=== PATIENT | female | born 1980 | race Caucasian/White ===

== ENCOUNTER 2019-08-06 10:18 | Outpatient (CLI) | payer OTHER, SELFPAY ==
--- NOTE | ~2019-08-06 | MM_ITS ---
EXAMINATION: MM screening tyree BI w jamie HISTORY: Screening mammogram, family history of breast cancer in her mother. TECHNIQUE: Craniocaudal and mediolateral oblique 3-D tomosynthesis images were obtained and synthetic 2-D images were generated. CAD analysis was submitted and interpreted. COMPARISON: None, baseline BREAST PARENCHYMAL COMPOSITION: The breasts are heterogeneously dense, which may obscure small masses . FINDINGS: There is no evidence of suspicious mass, calcification, or architectural distortion to sugg est malignancy in either breast. IMPRESSION: 1. No mammographic evidence of malignancy. 2. Recommend routine screening mammography in one year. BI-RADS Category 1: Negative Reviewed, dictated and finalized at location A. ER HEAD
== END 2019-08-06 10:19 | disposition home or self-care (01) ==
LOC: ANHIMG 10:22
PROVIDERS: PCP Family Medicine; Visit Provider Obstetrics & Gynecology
DX: Z12.31 Encounter for screening mammogram for malignant neoplasm of breast (principal)
CPT/HCPCS: 77063; 77067

== ENCOUNTER 2019-10-14 09:52 | Outpatient (CLI) | payer OTHER, SELFPAY ==
--- NOTE | ~2019-10-14 | XR_ITS ---
XR lumbar spine 2-3V 10/14/2019 10:12 Indication: Low back pain Procedure: 3 views of the lumbar spine Comparison: No prior studies for comparison. Findings: Normal lumbar alignment. Vertebral body heights are maintained. No significant disc narrowi ng. There is mild superior endplate degenerative change at L4. No evidence for spondylolisthesis. Ped icles intact. Sacral foramen are symmetric. Impression: 1: Mild lumbar spondylosis. Reviewed, dictated and finalized at location A. Impression: 1: Mild lumbar spondylosis.
== END 2019-10-14 09:53 | disposition home or self-care (01) ==
LOC: ANHIMG 09:55
PROVIDERS: PCP Family Medicine; Visit Provider Physician Assistant
DX: M54.5 Low back pain (principal); G89.29 Other chronic pain; M47.816 Spondylosis without myelopathy or radiculopathy, lumbar region
CPT/HCPCS: 72100

== ENCOUNTER 2019-11-24 00:15 | Outpatient (CLI) | payer OTHER, SELFPAY ==
[2019-11-24 18:58] LABS: SARS-CoV-2 RNA PCR Negative
== END 2019-11-24 00:16 | disposition home or self-care (01) ==
LOC: ANHCOVIDDT 00:15
PROVIDERS: PCP Family Medicine; Visit Provider Internal Medicine Gastroenterology
DX: Z01.812 Encounter for preprocedural laboratory examination (principal); Z20.828 Contact with and (suspected) exposure to other viral communicable diseases
CPT/HCPCS: 87635; C9803; U0003

== ENCOUNTER 2019-11-26 00:55 | Day surgery (SDC) | payer OTHER, SELFPAY ==
[2019-11-20 14:48] VITALS: BMI 27.5
[2019-11-26 09:16] VITALS: BP 129/79; PULSE 90; RESP 18; TEMP 37; O2SAT 99; BMI 26.6
--- NOTE | 2019-11-26 09:30 | PM.HPGS ---
History of Present Illness History of Present Illness Consent: Risks, benefits, and alternatives have been discussed and questions answered. Patient agrees to proceed with procedure. Chief complaint: neoplasm screening, fm hx colon ca Narrative: Dayami Reed is a 39 year old W female referred for screening colonoscopy secondary to family history of colon cancer father diagnosis at 60. Patient did have a colonoscopy over 10 years ago for what turned out to be infectious colitis. Patient is presently asymptomatic. [facility] Past Medical History Medical History Depression AMAN (generalized anxiety disorder) Surgical History Surgical History (Updated 11/26/19 @ 09:32 by Michael Nicholas MD) History of sinus surgery Status post section Family History Family History Mother Diabetes mellitus Father Carcinoma of colon Social History Social History Smoking status: Former smoker Smoking end date: 06/17/12 Alcohol intake: current Gender identity (if verbalized by the patient): Female Meds Home Medications and Allergies Home Medications Medication Instructions Recorded Confirmed Type No Home Medications 11/20/19 11/26/19 History Allergies Allergy/AdvReac Type Severity Reaction Status Date / Time No Known Allergies Allergy Verified 11/26/19 09:12 Vital Signs Vital Signs - 24 hr 11/26/19 09:16 Temperature 37.0 C Pulse Rate 90 Respiratory Rate 18 Blood Pressure 129/79 Pulse Oximetry 99 Exam Const: Orientation/consciousness: patient oriented x3 Resp: Auscultation: clear to auscultation bilaterally Cardio: Rate: regular rate Rhythm: regular rhythm Heart sounds: no murmurs GI: GI Palp: Yes Soft to palpation, No Tenderness to palpation present (GI), Yes No hepatosplenomegaly present and No Palpable mass present Auscultation: normal bowel sounds Neuro: General: patient oriented x3 and no focal motor deficits Extrem: General: no pedal edema Assessment and Plan Additional Plan screening colonoscopy in high risk patient
[2019-11-26] MEDS: LACTATED RINGERS 1,000 ML 150 ML IV CONT (09:33)
--- NOTE | 2019-11-26 09:41 | WPDANESEPPF ---
Anes - Initial Pre Proc Eval Procedure: Operation Date: 11/26/19 10:30 Proposed Procedures p Screening Colonoscopy - Michael Nicholas MD Date/Time: 11/26/19 09:41 Surgeon: Michael Nicholas MD Pre Op Diagnosis: neoplasm screening, fm hx colon ca Patient Data Age: 39 Gender: F Height: 5 ft 6 in Weight: 74.8 kg Last Vital Signs Temp 98.6 F 11/26/19 09:16 Pulse 90 11/26/19 09:16 Resp 18 11/26/19 09:16 BP 129/79 11/26/19 09:16 Pulse Ox 99 11/26/19 09:16 Allergies Allergy/AdvReac Type Severity Reaction Status Date / Time No Known Allergies Allergy Verified 11/26/19 09:33 Home Medications Medication Instructions Recorded Confirmed Type No Home Medications 11/20/19 11/26/19 History Patient hx anesthesia problems: none Family hx anesthesia problems: none PMFSH Past Medical History Medical History Depression AMAN (generalized anxiety disorder) Surgical History Surgical History (Updated 11/26/19 @ 09:32 by Michael Nicholas MD) History of sinus surgery Status post section Family History Family History Mother Diabetes mellitus Father Carcinoma of colon Social History Social History Smoking status: Former smoker Smoking end date: 06/17/12 Alcohol intake: current Gender identity (if verbalized by the patient): Female Anes - Eval Final PreProcedure Day of Procedure 11/26/19 09:41 Patient weight: normal Heart: regular rate and rhythm Lungs: clear to auscultation Airway: Mallampati scale class II Neurological: alert and oriented Last oral intake: >/= 8 hours ASA classification: II Emergent: no Anesthetic plan: proceed Anesthesia type and monitoring: general GIVS and standard monitoring Informed Consent: The patient's anesthetic plan and its attendant risks and benefits were discussed with the patient/family/POA. Questions were solicited and answers provided to the satisfaction of the patient/family/POA.
[2019-11-26 10:27] VITALS: BP 99/67; PULSE 94; RESP 16; O2SAT 96
[2019-11-26 10:37] VITALS: BP 104/71; PULSE 87; RESP 18; O2SAT 99
[2019-11-26 10:47] VITALS: BP 108/74; PULSE 82; RESP 21; O2SAT 100
== END 2019-11-26 10:55 | disposition home or self-care (01) ==
PROVIDERS: PCP Family Medicine; Visit Provider Internal Medicine Gastroenterology
PROC: 0DJD8ZZ Inspection of Lower Intestinal Tract, Via Natural or Artificial Opening Endoscopic (ICD-10-PCS; CPT 45378; principal; 2019-11-26 10:30)
DX: Z12.11 Encounter for screening for malignant neoplasm of colon (principal); Z80.0 Family history of malignant neoplasm of digestive organs; Z87.891 Personal history of nicotine dependence
CPT/HCPCS: G0105; J2704; J7120

== ENCOUNTER 2020-08-09 08:04 | Outpatient (CLI) | payer BC, SELFPAY ==
--- NOTE | ~2020-08-09 | MM_ITS ---
EXAMINATION: MM screening tyree BI w jamie HISTORY: Screening mammogram, family history of breast cancer in her mother. TECHNIQUE: Craniocaudal and mediolateral oblique 3-D tomosynthesis images were obtained and synthetic 2-D images were generated. CAD analysis was submitted and interpreted. COMPARISON: 08/06/2019 BREAST PARENCHYMAL COMPOSITION: The breasts are heterogeneously dense, which may obscure small masses . FINDINGS: There is no evidence of suspicious mass, calcification, or architectural distortion to sugg est malignancy in either breast. There has been no suspicious interval change. IMPRESSION: 1. No mammographic evidence of malignancy. 2. Recommend routine screening mammography in one year. BI-RADS Category 1: Negative Reviewed, dictated and finalized at location A. FOOD SERVICES MANAGER
== END 2020-08-09 08:05 | disposition home or self-care (01) ==
PROVIDERS: PCP Family Medicine; Visit Provider Obstetrics & Gynecology Gynecology
DX: Z12.31 Encounter for screening mammogram for malignant neoplasm of breast (principal)
CPT/HCPCS: 77063; 77067

== ENCOUNTER 2021-08-25 09:36 | Emergency (ER) | payer BC, SELFPAY ==
[2021-08-25 09:45] VITALS: BP 142/105; PULSE 72; RESP 19; TEMP 36.6; O2SAT 100
[2021-08-25] MEDS: diphenhydrAMINE HCl INJ 50 MG/ML VIAL 25 MG IV PUSH (11:51)
[2021-08-25] MEDS: KETOROLAC 30 MG/ML VIAL (*BKC) IV PUSH (11:51)
[2021-08-25] MEDS: SODIUM CHLORIDE 0.9% IV 1,000 ML 999 ML IV CONT (11:51)
[2021-08-25] MEDS: METOCLOPRAMIDE HCL INJ 10 MG/2 ML VIAL IV PUSH (11:52)
[2021-08-25 13:30] VITALS: BP 125/82; PULSE 85; RESP 14; O2SAT 97
--- NOTE | 2021-08-25 13:38 | ED.HA ---
HPI - Headache General Chief Complaint: Headache Stated Complaint: migraine, vomiting Time Seen by Provider: 08/25/21 11:24 History of Present Illness HPI Narrative: Patient is a 41-year-old female who presents ER with headache. Waxing waning over the last week. Has been taking Excedrin Migraine and Aleve. Worsened this morning. Associate with photophobia. Mild nausea. No fevers or chills or sweats. No extremity numbness or tingling. No new rash. No stiffness of the neck. Has history of migraines but this is more severe than typical. No thunderclap. 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 No other triggers. Related Data Home Medications Medication Instructions Recorded Confirmed No Home Medications 11/20/19 11/26/19 Allergies Allergy/AdvReac Type Severity Reaction Status Date / Time No Known Allergies Allergy Verified 08/25/21 10:53 Review of Systems Review of Systems: All systems reviewed & are unremarkable except as noted in HPI and below Constitutional: Constitutional: Denies chills, Denies fever(s) and Denies weakness Eyes: Eyes: Denies change in vision and Reports photophobia ENT: Denies nasal congestion and Denies sore throat Gastrointestinal: Gastrointestinal: Reports nausea and Denies vomiting Neurologic: Denies vertigo, Reports headache(s), Denies focal weakness and Denies numbness PMFSH Past Medical History Medical History (Updated 08/25/21 @ 13:42 by Lenin Salazar MD) Depression AMAN (generalized anxiety disorder) Migraine headache Surgical History Surgical History History of sinus surgery Status post section Family History Family History Mother Diabetes mellitus Father Carcinoma of colon Social History Social History (Updated 06/24/20 @ 11:27 by Tyesha Dukes CMA) Smoking status: Former smoker Second hand tobacco smoke exposure: No Smoking end date: 06/17/12 Alcohol intake: current Substance use: never Substance use type: does not use Gender identity (if verbalized by the patient): Female Exam Narrative: GENERAL: Uncomfortable-appearing, well-nourished, and in no acute distress, sensitive to light. HEAD: Normocephalic, atraumatic. EYES: PERRLA and EOMI. ENT: Mucous membranes moist. NECK: Supple. Full range of motion without meningismus. CHEST: Clear to auscultation. No respiratory distress. HEART: Regular rate and rhythm. Normal peripheral pulses. EXTREMITIES: Normal range of motion. No edema. NEURO: Alert and oriented x3. PSYCH: Normal mood and affect. Course Course Emergency Course: Headache markedly improved with Reglan/Benadryl/Toradol. Discharge home. Vital Signs Vital signs: Vital Signs Temperature 97.9 F 08/25/21 09:45 Pulse Rate 72 08/25/21 09:45 Respiratory Rate 19 08/25/21 09:45 Blood Pressure 142/105 H 08/25/21 09:45 Pulse Oximetry 100 08/25/21 09:45 Temperature 97.9 F 08/25/21 09:45 Pulse Rate 72 08/25/21 09:45 Respiratory Rate 19 08/25/21 09:45 Blood Pressure 142/105 H 08/25/21 09:45 Pulse Oximetry 100 08/25/21 09:45 Discharge Plan Discharge Clinical Impression: Migraine Patient Disposition: Home, Self-Care Condition: Stable Instructions: Migraine Headache (ED) Additional Instructions: Return the ER if you have worsening headache, you cannot keep down food or water, you have chest pain or shortness of breath, you have fever over 100.4 ?F. Prescriptions: No Action No Home Medications RF: 0 Follow-up/Referrals: Mike Conner MD [Primary Care Provider] - 1 Week
== END 2021-08-25 13:30 | disposition home or self-care (01) ==
PROVIDERS: Emergency Provider Emergency Medicine; PCP Family Medicine
DX: G43.909 Migraine, unspecified, not intractable, without status migrainosus (principal); Z87.891 Personal history of nicotine dependence
CPT/HCPCS: 96361; 96374; 96375; 99284; J1200; J1885; J2765; J7030

== ENCOUNTER 2021-09-21 15:43 | Outpatient (CLI) | payer BC, SELFPAY ==
--- NOTE | ~2021-09-21 | MM_ITS ---
EXAMINATION: MM screening tyree BI w jamie HISTORY: Screening TECHNIQUE: Craniocaudal and mediolateral oblique 3-D tomosynthesis images were obtained and synthetic 2-D images were generated. CAD analysis was submitted and interpreted. COMPARISON: Comparison to multiple prior studies sequentially, with oldest reviewed study dated 08/06. BREAST PARENCHYMAL COMPOSITION: The breasts are heterogeneously dense, which may obscure small masses . FINDINGS: There is no evidence of suspicious mass, calcification, or architectural distortion to sugg est malignancy in either breast. There has been no suspicious interval change. IMPRESSION: 1. No mammographic evidence of malignancy. 2. Recommend routine screening mammography in one year. BI-RADS Category 1: Negative Reviewed, dictated and finalized at location A.
== END 2021-09-21 15:44 | disposition home or self-care (01) ==
LOC: ANHIMG 15:46
PROVIDERS: PCP Family Medicine; Visit Provider Obstetrics & Gynecology Gynecology
DX: Z12.31 Encounter for screening mammogram for malignant neoplasm of breast (principal)
CPT/HCPCS: 77063; 77067

== ENCOUNTER 2021-12-13 13:21 | Outpatient (CLI) | payer BC, SELFPAY ==
--- NOTE | ~2021-12-13 | MR_ITS ---
EXAMINATION: MR brain/brain stem wo con DATE: 12/13/2021 15:40 CDT INDICATION: Migraine headaches. TECHNIQUE: Magnetic resonance imaging (MRI) of the brain and brainstem was performed without intraven ous contrast. Sequences included sagittal and axial T1-weighted SE, axial diffusion-weighted FS SE, a xial T2*-weighted GRE, axial T2-weighted FLAIR Propeller, and axial T2-weighted Propeller. Apparent d iffusion coefficient (ADC) maps were created. COMPARISON: CT sinuses dated 12/06/2018 FINDINGS: The brain volume and ventricular system are within normal limits. The brain parenchymal si gnal intensity pattern and rebolledo/white matter is normal and there is no evidence of hemorrhage, space occupying masses or infarctions. The flow signal voids of the major arterial structures about the [place] and within the ericka r dural venous sinuses appear grossly unremarkable and patent. The seventh and eighth cranial nerve complexes are normal. The mid sagittal image demonstrates a normal craniovertebral junction and ade us callosum. There is a mucous retention cyst of the left maxillary sinus. IMPRESSION: 1: Unremarkable MRI of the brain. No acute intracranial abnormality. Reviewed, dictated and finalized at location A.
== END 2021-12-13 13:22 | disposition home or self-care (01) ==
PROVIDERS: PCP Family Medicine; Visit Provider Physician Assistant Medical
DX: G43.909 Migraine, unspecified, not intractable, without status migrainosus (principal)
CPT/HCPCS: 70551

== ENCOUNTER → 2022-03-16 00:14 | Outpatient (CLI) | payer BC, SELFPAY ==
[2022-03-16 11:44] LABS: SARS-CoV-2 RNA PCR Negative
== END ==
PROVIDERS: PCP Family Medicine; Visit Provider Family Medicine
DX: J06.9 Acute upper respiratory infection, unspecified (principal); Z20.822 Contact with and (suspected) exposure to COVID-19
CPT/HCPCS: C9803; U0003; U0005

== ENCOUNTER 2022-11-19 09:18 | Outpatient (CLI) | payer BC, SELFPAY ==
--- NOTE | ~2022-11-19 | MM_ITS ---
EXAMINATION: MM screening tyree BI w jamie HISTORY: Screening TECHNIQUE: Craniocaudal and mediolateral oblique 3-D tomosynthesis images were obtained and synthetic 2-D images were generated. CAD analysis was submitted and interpreted. COMPARISON: Comparison to multiple prior studies sequentially, with oldest reviewed study dated 08/06. BREAST PARENCHYMAL COMPOSITION: The breasts are heterogeneously dense, which may obscure small masses FINDINGS: There is a new focal asymmetry laterally in the right breast on CC view. The left breast is stable without evidence for malignancy. IMPRESSION: 1. New right breast asymmetry laterally on CC view. 2. Additional mammographic views and possible breast ultrasound are recommended. BI-RADS Category 0: Incomplete: Needs additional imaging evaluation. Reviewed, dictated and finalized at location A. IMPRESSION: 1. New right breast asymmetry laterally on CC view. 2. Additional mammographic views and possible breast ultrasound are recommended . BI-RADS Category 0: Incomplete: Needs additional imaging evaluation.
== END 2022-11-19 09:19 | disposition home or self-care (01) ==
LOC: ANHIMG 09:21
PROVIDERS: PCP Family Medicine; Visit Provider Obstetrics & Gynecology Gynecology
DX: Z12.31 Encounter for screening mammogram for malignant neoplasm of breast (principal); R92.8 Other abnormal and inconclusive findings on diagnostic imaging of breast
CPT/HCPCS: 77063; 77067

== ENCOUNTER 2022-12-17 11:40 | Outpatient (CLI) | payer BC, SELFPAY ==
--- NOTE | ~2022-12-17 | MM_ITS ---
EXAMINATION: MM diagnostic tyree RT w jamie HISTORY: Right breast asymmetry on screening mammogram TECHNIQUE: Additional 3-D tomosynthesis images of the right breast were performed and synthetic 2-D i mages were generated. CAD analysis was submitted and interpreted. COMPARISON: 11/19/2022, 09/21/2021,08/09/2020, 08/06/2019 FINDINGS: There is a return to baseline fibroglandular appearance with spot compression of the right breast in the area questioned on screening mammogram. No suspicious mass, calcification, or cloud infrastructure architect ural distortion are identified to suggest malignancy. IMPRESSION: 1. No mammographic evidence of malignancy. 2. Recommend routine screening mammography in one year. BI-RADS Category 1: Negative Reviewed, dictated and finalized at location A.
== END 2022-12-17 11:41 | disposition home or self-care (01) ==
LOC: ANHIMG 11:42
PROVIDERS: PCP Family Medicine; Visit Provider Obstetrics & Gynecology Gynecology
DX: R92.8 Other abnormal and inconclusive findings on diagnostic imaging of breast (principal)
CPT/HCPCS: 77061; 77065; G0279

== ENCOUNTER 2023-12-02 08:03 | Outpatient (CLI) | payer BC, SELFPAY ==
--- NOTE | ~2023-12-02 | MM_ITS ---
EXAMINATION: MM screening tyree BI w jamie HISTORY: Screening TECHNIQUE: Craniocaudal and mediolateral oblique 3-D tomosynthesis images were obtained and synthetic 2-D images were generated. CAD analysis was submitted and interpreted. COMPARISON: Comparison to multiple prior studies sequentially, with oldest reviewed study dated 08/06. BREAST PARENCHYMAL COMPOSITION: Dense: The breasts are heterogeneously dense, which may obscure small masses FINDINGS: There is no evidence of suspicious mass, calcification, or architectural distortion to sugg est malignancy in either breast. There has been no suspicious interval change. IMPRESSION: 1. No mammographic evidence of malignancy. 2. Recommend routine screening mammography in one year. BI-RADS Category 1: Negative Reviewed, dictated and finalized at location B.
== END 2023-12-02 08:04 | disposition home or self-care (01) ==
LOC: ANHIMG 08:05
PROVIDERS: PCP Family Medicine; Visit Provider Nurse Practitioner
DX: Z12.31 Encounter for screening mammogram for malignant neoplasm of breast (principal)
CPT/HCPCS: 77063; 77067

== ENCOUNTER 2024-09-07 10:55 | Outpatient (CLI) | payer BC, SELFPAY ==
--- NOTE | ~2024-09-07 | US_ITS ---
EXAMINATION: US pelvic complete DATE: 09/07/2024 11:10 INDICATION: Left lower quadrant abdominal pain. TECHNIQUE: Multiple transabdominal sonographic images of the pelvis were obtained. COMPARISON: CT pelvis 02/14/2017 FINDINGS: The uterus measures 5.9 x 2.6 x 3.6 cm. There is no free fluid in the pelvis. The endometrial complex measures 3 mm in thickness. The right ovary measures 2.0 x 1.0 x 2.0 cm. The left ovary measures 1.6 x 1.2 x 1.9 cm. There is normal vascular flow in the ovaries. IMPRESSION: 1. Normal pelvis. Reviewed, dictated and finalized at location A. IMPRESSION: 1. Normal pelvis.
== END 2024-09-07 10:56 | disposition home or self-care (01) ==
LOC: MICIMG 10:56
PROVIDERS: PCP Family Medicine; Visit Provider Nurse Practitioner Women's Health
DX: R10.32 Left lower quadrant pain (principal)
CPT/HCPCS: 76856

== ENCOUNTER 2024-11-05 12:42 | Outpatient (CLI) | payer BC, SELFPAY ==
--- OUTSIDE RECORDS SUMMARY | 2024-11-05 12:47 | XMS_ITS | Referral Summary ---
Author Organization [facility] Address [address] [place] [address] Care Team Providers Care Welding Machine Assembler Name Role Phone Alee Dickerson MD Primary Care Provider [phone] Allergies No known active allergies Medications Qulipta 60 mg tablet Take 1 tablet by mouth daily 3 Active estradiol-noreth indrone (ACTIVELLA) 0.5-0.1 mg per tablet Take 1 tablet by mouth daily 4 Active fluticasone propionate (FLONASE) 50 mcg/actuation nasal sprayIndications :Acute maxillary sinusitis, recurrence not specified,Right acute serous otitis media, recurrence not specified Administer 2 sprays into each nostril daily 1 each 4 Active benzonatate (TESSALON) 100 mg capsuleIndicatio ns:Cough Take 1 capsule (100 mg total) by mouth 3 (three) times a day as needed for cough 42 capsule 4 Active albuterol HFA (PROVENTIL HFA,VENTOLIN HFA,PROAIR HFA) 90 mcg/actuation inhalerIndicatio ns:Lower respiratory infection Inhale 2 puffs every 6 (six) hours as needed for wheezing or shortness of breath 18 g 4 Active SUMAtriptan (IMITREX) 100 mg tablet 4 Active Active Problems No known active problems Social History Tobacco Use Types Packs/Day Years Used Date Smoking Tobacco: Former Tobacco Cessation:Counseling Given: Not Answered AUDIT-C Answer Date Recorded Q1: How often do you have a drink containing alc ohol? Monthly or less 12/14/2021 Q2: How many drinks containi ng alcohol do you have on a typical day when you are drinking? 1 or 2 12/14/2021 Q3: How often do you have si x or more drinks on one occasion? Less than monthly 12/14/2021 Personal Safety Answer Date Recorded Getting School Help Needed Not on file 07/04 Comments Unknown Sex and Gender Information Value Date Recorded Sex Assigned at Not on file Legal Sex Female 2:15 PM CDT Gender Identity Female 12/15/2021 1:22 PM CDT Sexual Orientation Not on file Last Filed Vital Signs Vital Sign Reading Time Taken Comments Blood Pressure 138/90 04/10/2024 5:52 PM CDT Pulse 103 04/10/2024 5:52 PM CDT Temperature 37.4 C (99.4 F) 04/10/2024 5:30 PM CDT Respiratory Rate 20 04/10/2024 5:30 PM CDT Oxygen Saturation 99% 04/10/2024 5:30 PM CDT Inhaled Oxygen Concentration - - Weight 72.6 kg (160 lb) 04/10/2024 5:30 PM CDT Height 167.6 cm (5' 6 ) 04/10/2024 5:30 PM CDT Body Mass Index 25.82 04/10/2024 5:30 PM CDT Plan of Treatment Not on file Insurance [employer] OOS ANTH ACCESS Member Subscriber Plan / Payer (Ef fective 2020-Present) Name:Alona Dayami Relation to Subscriber:Spouse Name:PREMNARINDER Almeida Date of :1979 (Home) Address: [place] [address] Payer ID:[id number] (NAIC) Type:BC ALLIANCE Address: [facility] [id number] [place] [id number] Care Teams Welding Machine Assembler Relationship Specialty Start Date End Date Alee Dickerson MD PCP - General Family Medicine 04/20/22
--- OUTSIDE RECORDS SUMMARY | 2024-11-05 12:47 | XMS_ITS | Clinical Summary ---
Author Organization [facility] Address [address] [place] [address] Care Team Providers Care Pier Hand Name Role Phone Mike Conner MD Primary Care Provider [phone] [facility],non-owned Affiliates and Associated Physician Practices is amultiple site organization consisting of ambulatory clinics and hospital sitesin [place], [place], [place] and [place]. This disclosure is being madepursuant to the Care Everywhere program and may not contain all information available regarding this patient. Last updated 18.[facility] Allergies No known active allergies Medications * Be aware that medications may not be up to date on this document. Alwaysverify current medications with the patient. fluticasone propionate (FLONASE) 50 MCG/ACT nasal spray Rugby 2 sprays into each nostril once daily 16 g 08/23/2019 Active sertraline (ZOLOFT) 50 MG tablet Take 1 tablet by mouth every 24 hours 08/14/2018 Active busPIRone (BUSPAR) 5 MG tablet Take 1 tablet by mouth every 12 hours 08/14/2018 Active ibuprofen (MOTRIN) 600 MG tablet Take 1 tablet by mouth every 8 hours 08/14/2018 Active azithromycin (ZITHROMAX) 250 MG tablet Take 2 tabs today, then 1 tab daily for next 4 days 6 tablet 01/25/2021 Active Active Problems No known active problems Social History Tobacco Use Types Packs/Day Years Used Date Smoking Tobacco: Former Cigarettes Smokeless Tobacco: Never Comments:stopped 2014 Comments No Sex and Gender Information Value Date Recorded Sex Assigned at Not on file Legal Sex Female 2:41 PM CDT Gender Identity Not on file Sexual Orientation Not on file Last Filed Vital Signs Vital Sign Reading Time Taken Comments Blood Pressure 116/76 01/25/2021 2:05 PM CDT Pulse 85 01/25/2021 2:05 PM CDT Temperature 36.9 C (98.4 F) 01/25/2021 2:05 PM CDT Respiratory Rate 16 12/06/2020 12:08 PM CDT Oxygen Saturation 97% 01/25/2021 2:05 PM CDT Inhaled Oxygen Concentration - - Weight 72.6 kg (160 lb) 01/25/2021 2:05 PM CDT Height 167.6 cm (5' 6 ) 01/25/2021 2:05 PM CDT Body Mass Index 25.82 01/25/2021 2:05 PM CDT Plan of Treatment Health Maintenance Due Date Last Done Comments COLOGUARD (AGES 45-75) - COL ON CA SCREENING 1979 COLON MONITORING 1979 COLONOSCOPY - COLON CA SCREENING 1979 CT COLONOGRAPHY - COLON CA SCREENING 1979 Colorectal Cancer Screening 1979 FIT - COLON CA SCREENING 1979 FLEX SIG - COLON CA SCREENING 1979 LIPID TESTING 1979 MAMMOGRAM 1979 HIV SCREENING 1994 HEPATITIS C SCREENING 07/27/1997 DTAP/TDAP/TD VACCINES (1 - Tdap) 1998 HEPATITIS B VACCINE (1 of 3 - 19+ 3-dose series) 1998 SCREENING FOR DIABETES 12/06/2020 COVID-19 VACCINE (3 - 2023-2 5 season) 2024 09/06/2020, 08/06/2020 DEPRESSION SCREENING 06/17/2024 INFLUENZA VACCINE (Season Ended) 2025 04/05/2020, 04/06/2018 ZOSTER VACCINE (1 of 2) 2029 HIB VACCINE Aged Out No longer eligi ble based on patient's age to complete this topic HPV VACCINE Aged Out No longer eligi ble based on patient's age to complete this topic MENINGOCOCCAL (Group B) VACCINE SHARED DECISION-MAKING Aged Out No longer eligible based on patient's age to complete this topic MENINGOCOCCAL GROUPS A/C/Y/W VACCINE Aged Out No longer eligible b ased on patient's age to complete this topic PNEUMOCOCCAL VACCINE Aged Out No long er eligible based on patient's age to complete this topic Insurance [employer] Care Teams Pier Hand Relationship Specialty Start Date End Date Mike Conner MD [address] [place] [address] PCP - General Family Medicine 04/26/18
--- OUTSIDE RECORDS SUMMARY | 2024-11-05 12:47 | XMS_ITS | Continuity of Care Document ---
Author Organization [facility] Address [address] [place] [address] Phone Care Team Providers Care Recovery Room Nurse Name Role Phone Unavailable Unavailable Unavailable Advance Directives Directive Yes / No Effective Date File Name No Information Encounters Encounter Description Practice Location Reason(s) For Visit Diagnoses Date Provider Providers Copied on Encounter [facility], [address], [place], [place], [id number], tel:[phone] [facility] INPATIENT No Information No Information Referring Provider: JONATHAN King, [address] [place], [address]. tel:[phone] Family History Family Member Type Diagnosis Age At Onset No Information Payers Payer name Insurance type Covered green party ID Halie blandon(s) LONNIE PPO [id number] Social History Type Description Quantity Date Captured Comments Sex Female Smoking Status No Information Chief Complaint And Reason For Visit No Information History Of Present Illness Encounter Date Complaint History Of Prese nt Illness No Information Instructions Date Instruction Additional Infor mation No Information Assessments Type Assessment Date No Information
--- OUTSIDE RECORDS SUMMARY | 2024-11-05 12:47 | XMS_ITS | Clinical Summary ---
Author Organization [facility] Address [address] [place] [address] Care Team Providers Care Handicraft Or Hobby Shop Manager Name Role Phone Alee Dickerson MD Primary Care Provider [phone] Allergies No known active allergies Medications Qulipta [...] Active Active Problems No known active problems Surgical History Surgery Date Site/Laterality Comments SECTION 2013 & 2016 Family History Medical History Relation Name Comments Cancer Father Chinedu Kumar Arthritis Mother Sara Levins Cancer Mother Sara Levins Diabetes Mother Sara Stacy Kidney disease Mother Sara Kumar Asthma Son Edwin Sage Relation Name Status Comments Father Chinedu Kumar Mother Sara Kumar Son Edwin Sage Social History Tobacco Use Types Packs/Day Years [...] PM CDT Sexual Orientation Not on file Obstetrics History Last Filed Vital Signs Vital Sign Reading [...] 04/10/2024 5:30 PM CDT Plan of Treatment Health Maintenance Due Date Last Done Comments Breast Cancer Screening-Mammogram 1979 Cervical Cancer Screening 1979 Colon Cancer Screening-Colonoscopy 1979 Depression Screening 1979 Hepatitis C Screening 1979 Varicella Vaccines (1 of 2 - 13+ 2-dose series) 1992 Hepatitis B Screening 1997 Regular Well Visit/Exam 18-64 1997 DTaP/Tdap/Td Vaccine (2 - Td or Tdap) 02/06/2024 02/05/2014 Covid-19 Vaccine (2023-2 5 season) 2024 09/06/2020, 08/06/2020 Influenza Vaccine (Season Ended) 2025 04/05/2020, 04/06/2018 Pneumococcal vaccine <65 Aged Out 06/17/2011 No longer eligible based on patient's age to complete this topic HPV Vaccines Aged Out No longer eligi ble based on patient's age to complete this topic Insurance [employer] OOS COUNT INCLUDES THE [facility] ACCESS Care Teams Handicraft Or Hobby Shop Manager Relationship Specialty Start Date End Date Alee Dickerson MD PCP - General Family Medicine 04/20/22
--- OUTSIDE RECORDS SUMMARY | 2024-11-05 12:47 | XMS_ITS | Clinical Summary ---
Author Organization [facility] Address [address] [place] [address] Phone Care Team Providers Care Sales Supervisor Name Role Phone Unavailable Primary Care Provider Unavailabl e Allergies No known active allergies Medications vit-iron fumarate-FA ( S) 27-0.8 mg Tablet Take 1 Tab by mouth daily. Active sertraline (ZOLOFT) 25 mg tablet Take 25 mg by mouth daily. Active HYDROcodone-acet aminophen (NORCO) 5-325 mg tablet Take 1 Tablet by mouth every 4 hours as needed for Pain, Moderate. Max Daily Amount: 6 Tablet 40 Tablet 0 11/26/2015 Active famotidine (PEPCID) 20 mg tablet Take 1 Tablet (20 mg) by mouth 2 times daily as needed for Other (See Comment) (indigestio n). 60 Tablet 0 11/26/2015 Active sennosides-docus ate sodium (SENNA-S) 8.6-50 mg tablet Take 1 Tablet by mouth daily at bedtime. 11/26/2015 Active ibuprofen (MOTRIN) 600 mg tablet Take 1 Tablet (600 mg) by mouth every 6 hours as needed for Pain. 60 Tablet 0 11/26/2015 Active Active Problems Problem Noted Date Diagnosed Date RLTCS 11/23/15 failed TOLAC, NRFHT 11/23/2015 Vaginal discharge during in third trim bart 10/12/2015 obs: sob, mid-back pain, gloria v bp's, labs wnl's (bnp 1700's), CT chest wnl's, 02/07/2014 PLTCS 02/0202/01/2014 S/p fall 01/09/2014 Gastroenteritis 11/24/2013 Urinary retention 08/13/2013 Celiac disease 05/06/2012 Overview (05/06/2012): Celiac disease versus gluten sensitivity. EGD biopsies showed signs of celiac disease, serologies were negative for celiac. Has responded to a gluten free diet. Resolved Problems Problem Noted Date Diagnosed Date Resolved Date TOLAC (2014, C&P, [id number]), [facility] GBS-, O+ 11/23/2015 11/23/2015 GI bleed 12/27/2011 05/06/2012 Colitis 12/27/2011 05/06/2012 Immunizations Immunization Administration Dates Next Due (ADACEL/BOOSTRIX)(10 YR UP) TDAP VACCINE, 0.5ML, IM 02/05/2014 Pneumococcal conjugate, unspecified formulation 06/17/2011 Family History Medical History Relation Name Comments Healthy Father Hypertension Father Diabetes Mother Healthy Mother Healthy Sister Celiac Disease Neg Hx Colon Cancer Neg Hx Colon Polyps Neg Hx Crohn's Disease Neg Hx Liver Disease Neg Hx Pancreatic Cancer Neg Hx Relation Name Status Comments Father Alive Mother Alive Sister Alive Social History Tobacco Use Types Packs/Day Years Used Date Smoking Tobacco: Former Cigarettes Q uit: 03/17/2013 Smokeless Tobacco: Never Alcohol Use Standard Drinks/Week Comments No 0 (1 standard drink = 0.6 oz pur e alcohol) Comments No Sex and Gender Information Value Date Recorded Sex Assigned at Not on file Legal 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 Gender Identity Not on file Sexual Orientation Not on file Occupation Industry Job Start Date Job End Date Not on file Not on file Not on file Not on file Last Filed Vital Signs Vital Sign Reading Time Taken Comments Blood Pressure 140/87 11/26/2015 7:00 AM CDT Pulse 85 11/26/2015 7:00 AM CDT Temperature 36.4 C (97.6 F) 11/26/2015 7:00 AM CDT Respiratory Rate 18 11/26/2015 7:00 AM CDT Oxygen Saturation 96% 11/23/2015 7:25 PM CDT Inhaled Oxygen Concentration - - Weight 83 kg (183 lb) 11/23/2015 4:42 AM CDT Height 167.6 cm (5' 6 ) 11/23/2015 4:42 AM CDT Body Mass Index 29.54 11/23/2015 4:42 AM CDT Plan of Treatment Health Maintenance Due Date Last Done Comments HEPATITIS B VACCINES (1 of 3 - 19+ 3-dose series) 1998 HPV/Cotest (21-29) 2000 CERVICAL CANCER SCREENING 2009 HPV/Cotest (30-65) 2009 PAP SMEAR 2009 BREAST CANCER SCREENING 2019 INFLUENZA VACCINE (#1) 2024 DTAP/TDAP/TD VACCINES (2 - T d or Tdap) 02/06/2024 02/05/2014 COLORECTAL SCREENING 2024 03/27/2012 Colorectal Cancer Screening 2024 FIT-DNA Q 3 years 2024 FIT/FOBT Q 1 year 2024 Flex Sig/CT Colonography Q 5 years 2024 HPV VACCINES Aged Out No longer eligi ble based on patient's age to complete this topic Medical Devices Implanted Type Area Account Receivable Clerk Device Identifier Shelf Expiration Date Model / Serial / Lot Barrier Seprafilm 5x6in [id number] - [id number] Implanted:Qty : 1 on 11/23/2015 by Nahomi Canela MD at [facility] Adhesion Barrier N/A: Uterus [employer] [id number] 10/14/2017 [id number] / / [id number] [place] [address] [facility] BLUE ACCESS/TRUE BLUE PPO Advance Directives For more information, please contact: [phone] * Full Code (Latest Code Status on File) Date Activated Date Inactivated Comments 11/23/2015 12:42 PM 11/26/2015 4:31 PM * Full Code Date Activated Date Inactivated Comments 11/23/2015 4:55 AM 11/23/2015 12:42 PM * Full Code Date Activated Date Inactivated Comments 10/12/2015 10:29 AM 10/12/2015 2:25 PM * Full Code Date Activated Date Inactivated Comments 02/02/2014 9:18 AM 02/05/2014 6:32 PM * Full Code Date Activated Date Inactivated Comments 02/01/2014 9:21 AM 02/02/2014 9:18 AM
== END 2024-11-05 12:43 | disposition home or self-care (01) ==
PROVIDERS: PCP Family Medicine; Visit Provider Family Medicine
DX: M25.562 Pain in left knee (principal)
CPT/HCPCS: 73562

== ENCOUNTER 2025-04-23 14:17 | Outpatient (CLI) | payer BC, SELFPAY ==
--- OUTSIDE RECORDS SUMMARY | 2014-02-07 18:00 | XMS_ITS | Continuity of Care Document ---
Author Organization [facility] Address [address] [place] [address] Phone Care Team Providers Care Insecticide Mixer Name Role Phone Unavailable Unavailable Unavailable Advance Directives Directive Yes / No Effective Date File Name No Information Encounters Encounter Description Practice Location Reason(s) For Visit Diagnoses Date Provider Providers Copied on Encounter [facility], [address] [facility], [place], [place], [id number], tel:[phone] [facility] INPATIENT No Information No Information Referring Provider: JONATHAN King, [address] [place], [address]. tel:[phone] Family History Family Member Type Diagnosis Age At Onset No Information Payers Payer name Insurance type Covered green party ID Halie blandon(s) [employer] PPO [id number] Social History Type Description Quantity Date Captured Comments Sex Female Smoking Status No Information Chief Complaint And Reason For Visit No Information History Of Present Illness Encounter Date Complaint History Of Prese nt Illness No Information Instructions Date Instruction Additional Infor mation No Information Assessments Type Assessment Date No Information
--- NOTE | ~2025-04-23 | MM_ITS ---
EXAMINATION: MM screening tyree BI w jamie HISTORY: Screening TECHNIQUE: Craniocaudal and mediolateral oblique 3-D tomosynthesis images were obtained and synthetic 2-D images were generated. CAD analysis was submitted and interpreted. COMPARISON: Comparison to multiple prior studies sequentially, with oldest reviewed study dated 08/06/2019. BREAST PARENCHYMAL COMPOSITION: Dense: The breasts are heterogeneously dense, which may obscure small masses FINDINGS: There is no evidence of suspicious mass, calcification, or architectural distortion to suggest malignancy in either breast. There has been no suspicious interval change. IMPRESSION: 1. No mammographic evidence of malignancy. 2. Recommend routine screening mammography in one year. BI-RADS Category 1: Negative Reviewed, dictated and finalized at location O. H DEVELOPMENT SPECIALIST
--- OUTSIDE RECORDS SUMMARY | 2025-04-23 14:20 | XMS_ITS | Clinical Summary ---
Author Organization [facility] Address [address] [place] [address] Care Team Providers Care Sand Drier Name Role Phone Alee Dickerson MD Primary Care Provider Allergies No known active allergies Medications Estradiol-Noreth indrone Acet 0.5-0.1 MG Tab Take 1 tablet by mouth daily. 09/03/2024 Active SUMAtriptan (IMITREX) 100 MG tablet Take 1 tablet (100 mg total) by mouth as needed. Active SUMAtriptan (IMITREX) 100 MG tabletIndication s:Migraine without aura, not intractable, without status migrainosus Take 1 tablet (100 mg total) by mouth daily as needed for Migraine. 16 tablet 11 02/18/2025 Active topiramate (TOPAMAX) 50 MG TabIndications:M igraine without aura, not intractable, without status migrainosus Take 1 tablet (50 mg total) by mouth nightly at bedtime. 30 tablet 11 02/18/2025 Active amitriptyline (ELAVIL) 10 MG tabletIndication s:Migraine without aura, not intractable, without status migrainosus Take 1 tablet (10 mg total) by mouth nightly at bedtime. 30 tablet 11 03/10/2025 Active Active Problems Problem Noted Date Diagnosed Date Chronic migraine w/o aura w/ o status migrainosus, not intractable 03/30/2025 S/P repeat low transverse 11/23/2015 Vaginal discharge during in third trim bart 10/12/2015 SOB (shortness of breath) 02/07/2014 Gastroenteritis 11/24/2013 Retention of urine 08/13/2013 Celiac disease 05/06/2012 Overview (12/17/2024): Celiac disease versus gluten sensitivity. EGD biopsies showed signs of celiac disease, serologies were negative for celiac. Has responded to a gluten free diet. Encounters Date Type Department Care Team Description 03/30/2025 Therapy Plan [facility] - [facility] [address], [address] [place] [address] Aureliano Restrepo MD 03/28/2025 MyChart Message Enc [facility] Neurology Speciality [facility] [place] [address] [place] [address] Aureliano Restrepo MD Botox? 03/10/2025 MyChart Message Enc [facility] [place] [address] [place] [address] Aureliano Restrepo MD Topiramate 02/18/2025 1:00 PM CDT Office Visit [facility] [place] [address] [place] [address] Aureliano Restrepo MD Follow Up (Migraines/) 02/18/2025 Travel 01/25/2025 Results Follow-Up [facility] [place] [address] [place] [address] Aureliano Restrepo MD MRI BRAIN WWO CON 01/22/2025 8:27 AM CDT - 01/22/2025 11:59 PM CDT Hospital Encounter [facility] Open MRI [address] [place] [address] Aureliano Restrepo MD Discharge Disposition: Home or Self Care (Routine Discharge) 01/22/2025 Travel from Last 3 Months Social History Tobacco Use Types Packs/Day Years Used Date Smoking Tobacco: Never Smokeless Tobacco: Never Tobacco Cessation:Counseling Given: Not Answered Alcohol Use Standard Drinks/Week Comments Yes 0 (1 standard drink = 0.6 oz pur e alcohol) PHQ-2 Answer Date Recorded Patient Health Questionnaire-2 Score 0 12/17/2024 Comments No Sex and Gender Information Value Date Recorded Sex Assigned at Female 01/22/2025 8:26 AM CDT Legal Sex Female 11:55 AM CDT Gender Identity Not on file Sexual Orientation Not on file Last Filed Vital Signs Vital Sign Reading Time Taken Comments Blood Pressure 145/96 02/18/2025 1:40 PM CDT Pulse 97 02/18/2025 1:05 PM CDT Temperature 37 C (98.6 F) 02/18/2025 1:05 PM CDT Respiratory Rate 18 12/17/2024 10:59 AM CDT Oxygen Saturation 99% 02/18/2025 1:05 PM CDT Inhaled Oxygen Concentration - - Weight 76.7 kg (169 lb) 02/18/2025 1:05 PM CDT Height 165.1 cm (5' 5) 02/18/2025 1:05 PM CDT Body Mass Index 28.12 02/18/2025 1:05 PM CDT Plan of Treatment Upcoming Encounters Date Type Department Care Team (Late st Contact Info) Description 05/26/2025 2:00 PM SECTION HAND HELPER Office Visit [facility] - [facility] [address], [address] [place] [id number] Aureliano Restrepo MD [address] [place] [address] 07/22/2025 1:20 PM SECTION HAND HELPER Office Visit [facility] - [address] [place] [address] Aureliano Restrepo MD [address] [place] [address] Health Maintenance Due Date Last Done Comments Cervical Cancer Screening Pa p Smear (Age 30 to 64) Every 3 Years 1979 Colorectal Cancer Screening Colonoscopy (10 Years) 1979 Annual Physical 1982 Hepatitis C 1997 Hepatitis B Vaccines (1 of 3 - 19+ 3-dose series) 1998 HPV Vaccines (1 - 3-dose SCD M series) 2006 Cervical Cancer Screening Pa p with HPV Testing (Age 30 to 64) Every 5 Years 2009 Cervical Cancer Screening wi th HPV 2009 Mammogram Screening 2019 DTaP, Tdap and Td Vaccines ( 2 - Td or Tdap) 02/06/2024 02/05/2014 COVID-19 Vaccine (4 - 2024-2 6 season) 2025 05/24/2021, 09/06/2020, 08/06/2020 Influenza Adult (#1) 2025 04/05/2020, 04/06/2018 Pneumococcal Vaccine: Pediatrics (0 to 5 Years) and At-Risk Patients (6 to 49 Years) Aged Out 06/17/2011 No longer eligible b ased on patient's age to complete this topic PHQ-2 (Physician Pinckney) Completed 12/17/2024 Hepatitis A Vaccines Aged Out No long er eligible based on patient's age to complete this topic Meningococcal B Vaccine Aged Out No l onger eligible based on patient's age to complete this topic Meningococcal Vaccine Aged Out No nargis kala eligible based on patient's age to complete this topic RSV Immunizations Under 20 Months Aged Out No longer eligible b ased on patient's age to complete this topic Procedures Procedure Name Priority Date/Time Associated Diagnosis Comments MRI BRAIN WWO CON Routine 01/22/2025 9:0 1 AM CDT Pituitary adenoma ([facility]) from Last 3 Months Results * MRI BRAIN WWO CON (01/22/2025 9:01 AM CDT) Anatomical Region Laterality Modality Head Magnetic Resonan ce 01/22/2025 7:21 PM CDT Impressions 01/24/2025 11:10 PM CDT IMPRESSION: No distinct pituitary mass. Redemonstration of slight prominence of the right aspect of the pituitary gland. Most likely a variation of normal. Referred By: AURELIANO RESTREPO Interpreted By: Sylvain Mayers MD, 01/22/2025 7:21 PM Narrative 01/24/2025 11:10 [place] [address] IMAGING STUDIES: MRI BRAIN WWO CON MRI OF THE PITUITARY GLAND WITH AND WITHOUT CONTRAST. DATE: 01/22/2025 8:30 AM CLINICAL HISTORY: pituitary adenoma. Chronic migraine headache. Slight prominence to the right pituitary gland on recent MRI of the brain COMPARISON: 01/05/2025. CONTRAST IV administration of 7 cc of dotarem Routine MRI of the pituitary gland with dynamic imaging. FINDINGS: No distinct pituitary mass. Redemonstration of slight prominence of the right aspect of the pituitary gland. Most likely a variation of normal. Pituitary stalk is midline. Optic chiasm without gross abnormality. No suprasellar lesion. Grossly normal flow voids within the cavernous portions of the internal carotid arteries.. Procedure Note Sylvain Mayers MD - 01/24/2025 [place] [address] IMAGING STUDIES: MRI BRAIN WWO CON MRI OF THE PITUITARY GLAND WITHAND WITHOUT CONTRAST. DATE: 01/22/2025 8:30 AM CLINICAL HISTORY: pituitary adenoma. Chronic migraine headache. Slightprominence to the right pituitary gland on recent MRI of the brain COMPARISON: 01/05/2025. CONTRAST IV administration of 7 cc of dotarem Routine MRI of the pituitary gland with dynamic imaging. FINDINGS: No distinct pituitary mass. Redemonstration of slight prominence of theright aspect of the pituitary gland. Most likely a variation of normal. Pituitary stalk is midline. Optic chiasm without gross abnormality. Nosuprasellar lesion. Grossly normal flow voids within the cavernous portions of the internalcarotid arteries.. IMPRESSION: No distinct pituitary mass. Redemonstration of slight prominence of theright aspect of the pituitary gland. Most likely a variation of normal. Referred By: AURELIANO RESTREPO Interpreted By: Sylvain Mayers MD, 01/22/2025 7:21 PM us Aureliano Restrepo MD MRI Final Res ult from Last 3 Months Insurance [facility] Care Teams Sand Drier Relationship Specialty Start Date End Date Alee Dickerson MD [address] [place] [address] PCP - General FAMILY PRACTICE 01/04/25
--- OUTSIDE RECORDS SUMMARY | 2025-04-23 14:20 | XMS_ITS | Encounter Summary ---
Author Organization [facility] Healthcare Address [address] [place] [address] Care Team Providers Care Deposit Clerk Name Role Phone Alee Dickerson MD Primary Care Provider [phone] Encounter Details Date Type Department Care Team (Late st Contact Info) Description 02/26/2025 Results Follow-Up [facility] Convenient Care at [address] [address] Maritza Madera NP [address] [place] [address] [address] [place] [address] XR Chest PA Lateral 2 Views Social History Tobacco Use Types Packs/Day Years Used Date Smoking Tobacco: Former AUDIT-C Answer Date Recorded Q1: How often do you have a drink containing alc ohol? Monthly or less 12/24/2024 Average Number of Drinks Not on file 025 Frequency of Binge Drinking Not on file 12/15 Comments Unknown Sex and Gender Information Value Date Recorded Sex Assigned at Not on file Legal Sex Female 2:15 PM CDT Gender Identity Female 12/15/2021 1:22 PM CDT Sexual Orientation Not on file documented as of this encounter Functional Status documented as of this encounter Plan of Treatment Not on file documented as of this encounter Visit Diagnoses Not on filedocumented in this encounter Additional Health Concerns Infection Onset Date Last Indicated Resolved Time COVID: Suspected 02/26/2025 02/26/2025 02/26/2025 9:10 AM CDT documented as of this encounter Care Teams Deposit Clerk Relationship Specialty Start Date End Date Alee Dickerson MD PCP - General Family Medicine 04/20/22 documented as of this encounter
--- OUTSIDE RECORDS SUMMARY | 2025-04-23 14:20 | XMS_ITS | Encounter Summary ---
Author Organization [facility] Address [address] [place] [address] Care Team Providers Care Automobile Inspector Name Role Phone Alee Dickerson MD Primary Care Provider [phone] Encounter Details Date Type Department Care Team (Late Contact Info) Description 03/28/2025 [employer]stitute[employer] Message Enc [facility]ity [facility] - [address] [place] [phone] Aureliano Restrepo MD [address] [place] [address] Botox? Social History Tobacco Use Types Packs/Day Years Used Date Smoking Tobacco: Never Smokeless Tobacco: Never Alcohol Use Standard Drinks/Week Comments Yes 0 (1 standard drink = 0.6 oz pur e alcohol) PHQ-2 Answer Date Recorded Patient Health Questionnaire-2 Score 0 12/17/2024 Comments No Sex and Gender Information Value Date Recorded Sex Assigned at Female 01/22/2025 8:26 AM CDT Legal Sex Female 11:55 AM CDT Gender Identity Not on file Sexual Orientation Not on file documented as of this encounter Plan of Treatment Upcoming Encounters Date Type Department Care Team (Late Contact Info) Description 05/26/2025 2:00 PM BRANDING SPECIALIST Office Visit [facility] Multispecialty Care - [address], [address] [place] [address] Aureliano Restrepo MD [address] [place] [address] 07/22/2025 1:20 PM BRANDING SPECIALIST Office Visit [facility] Neurology Speciality Clinic - [address] [place] [address] Aureliano Restrepo MD [address] [place] [address] documented as of this encounter Visit Diagnoses Not on filedocumented in this encounter Care Teams Automobile Inspector Relationship Specialty Start Date End Date Aele Dickerson MD [address] [place] [address] PCP - General FAMILY PRACTICE 01/04/25 documented as of this encounter
--- OUTSIDE RECORDS SUMMARY | 2025-04-23 14:20 | XMS_ITS | Clinical Summary ---
Author Organization [facility] [place] [employer] Address [address] [place] [address] Care Team Providers Care Electrical Electronics Engineers Name Role Phone Alee Dickerson MD Primary Care Provider [phone] Allergies No known active allergies Medications estradiol-noreth indrone (ACTIVELLA) 0.5-0.1 mg per tablet Take 1 tablet by mouth daily 4 Active fluticasone propionate (FLONASE) 50 mcg/actuation nasal sprayIndications :Acute maxillary sinusitis, recurrence not specified,Right acute serous otitis media, recurrence not specified Administer 2 sprays into each nostril daily 1 each 4 Active Additional Information Patient not taking.Reported on 02/26/2025 albuterol HFA (PROVENTIL HFA,VENTOLIN HFA,PROAIR HFA) 90 mcg/actuation inhalerIndicatio ns:Lower respiratory infection Inhale 2 puffs every 6 (six) hours as needed for wheezing or shortness of breath 18 g 4 Active ubrogepant (Ubrelvy) 100 mg tablet Take 1 tablet (100 mg total) by mouth once as needed for migraine May repeat dose once in 2 hours if no relief. Do not exceed 2 doses in 24 hours. Active topiramate (TOPAMAX) 25 mg tablet Take 1 tablet (25 mg total) by mouth daily Active atogepant 60 mg tablet Take 60 mg by mouth 3 Active ergocalciferol (VITAMIN D) 50,000 unit capsule Take 1.25 mg by mouth once a week 5 Active SUMAtriptan (IMITREX) 100 mg tablet PLEASE SEE ATTACHED FOR DETAILED DIRECTIONS Active benzonatate (TESSALON) 200 mg capsuleIndicatio ns:Acute nasopharyngitis, Acute cough Take 1 capsule (200 mg total) by mouth 3 (three) times a day as needed for cough keep tessalon out of reach of children, especially children under the age of 10, due to possible serious risk such as if ingested by children under the age of 10. 30 capsule 5 Active Active Problems No known active problems Encounters Date Type Department Care Team Description 02/26/2025 9:15 AM CDT Ancillary Procedure [facility] Imaging at [address] [phone] Sore throat 02/26/2025 9:00 AM CDT Office Visit [facility] at [address] [phone] Maritza Madera NP Acute nasopharyngitis (Primary Dx); Acute cough 02/26/2025 Results Follow-Up [facility] at [address] [phone] Maritza Madera NP XR Chest PA Lateral 2 Views from Last 3 Months Surgical History Surgery Date Site/Laterality Comments SECTION 2013 & 2016 Family History Medical History Relation Name Comments Cancer Father Chinedu Kumar Arthritis Mother Sara Levins Cancer Mother Sara Levins Diabetes Mother Sara Stacy Kidney disease Mother Sara Stacy Asthma Son Edwin Reed Relation Name Status Comments Father Chinedu Choudhuryggs Mother Sara Stacy Son Edwin Reed Social History Tobacco Use Types Packs/Day Years [...] Sign Reading Time Taken Comments Blood Pressure 110/86 02/26/2025 8:54 AM CDT Pulse 89 02/26/2025 9:14 AM CDT Temperature 36.2 C (97.1 F) 02/26/2025 8:54 AM CDT Respiratory Rate 18 02/26/2025 8:54 AM CDT Oxygen Saturation 99% 02/26/2025 9:14 AM CDT Inhaled Oxygen Concentration - - Weight 78 kg (172 lb) 02/26/2025 8:54 AM CDT Height 165.1 cm (5' 5) 02/26/2025 8:54 AM CDT Body Mass Index 28.62 02/26/2025 8:54 AM CDT Plan of Treatment Health Maintenance Due Date Last Done Comments Breast Cancer Screening-Mammogram 1979 Cervical Cancer Screening 1979 Colon Cancer Screening-Colonoscopy 1979 Depression Screening 1979 Hepatitis C Screening 1979 Varicella Vaccines (1 of 2 - 13+ 2-dose series) 1992 Hepatitis B Screening 1997 Regular Well Visit/Exam 18-64 1997 HPV Vaccines (1 - 3-dose SCD M series) 2006 DTaP/Tdap/Td Vaccine (2 - Td or Tdap) 02/06/2024 02/05/2014 Covid-19 Vaccine (3 - 2024-2 6 season) 2025 09/06/2020, 08/06/2020 Influenza Vaccine (#1) 2025 0, 04/06/2018 Pneumococcal vaccine <65 Aged Out 06/17/2011 No longer eligible based on patient's age to complete this topic Procedures Procedure Name Priority Date/Time Associated Diagnosis Comments XR CHEST PA LATERAL 2 VIEWS Schedule LUX, Read LUX (Appt Today, Awaiting Results) 02/26/2025 9:21 AM CDT Sore throat POC INFLUENZA A/B, COVID-19 ANTIGEN Routine 02/26/2025 8:51 AM CDT Acute nasopharyngitis POCT RAPID STREP Routine 02/26/2025 8:51 AM CDT Acute nasopharyngitis from Last 3 Months Results * XR Chest PA Lateral 2 Views (02/26/2025 9:21 AM CDT) Anatomical Region Laterality Modality Body, Chest N/A Digital Radiogra phy 02/26/2025 11:0 1 AM CDT Narrative 02/26/2025 11:02 AM CDT EXAM DESCRIPTION: XR CHEST PA LATERAL 2 VIEWS REASON FOR STUDY: cough Pt complains of congestion x 1 day. No asthma,copd,cancer,heart disease. No smoking. No chest surgery TECHNIQUE: Frontal and lateral radiographic view(s) of the chest. COMPARISON: 05/04/2021. FINDINGS: LUNGS: No focal opacity, pleural effusion, or pneumothorax. HEART/MEDIASTINUM: Cardiac silhouette normal in size. Mediastinal and hilar contours appear normal. LINES/TUBES: None. BONES: No acute osseous abnormality. IMPRESSION: No acute cardiopulmonary abnormality. THIS IS AN ELECTRONICALLY VERIFIED FINAL REPORT 02/26/2025 11:02 AM - Electronically signed by Toby Blackwell M.D. T: Report ID: [id number] Reading Location: [id number] Procedure Note Toby Blackwell MD - 02/26/2025 EXAM DESCRIPTION: XR CHEST PA LATERAL 2 VIEWS REASON FOR STUDY: cough Pt complains of congestion x 1 day. No asthma,copd,cancer,heart disease.No smoking. No chest surgery TECHNIQUE: Frontal and lateral radiographic view(s) of the chest. COMPARISON: 05/04/2021. FINDINGS: LUNGS: No focal opacity, pleural effusion, or pneumothorax. HEART/MEDIASTINUM: Cardiac silhouette normal in size. Mediastinal andhilar contours appear normal. LINES/TUBES: None. BONES: No acute osseous abnormality. IMPRESSION: No acute cardiopulmonary abnormality. THIS IS AN ELECTRONICALLY VERIFIED FINAL REPORT 02/26/2025 11:02 AM - Electronically signed by Toby Blackwell M.D. CH T: Report ID: [id number] Reading Location: [id number] Maritza Madera MANAGER OF [facility] IMG XR PROCEDURES Final Result * POC Influenza A/B, COVID-19 antigen (02/26/2025 8:51 AM CDT) Influenza A Ag, POC Negative Negative [facility] Influenza B Ag, POC Negative Negative [facility] COVID-19 Ag POC Presumptive Negative Presumptive Negative, Invalid [facility] Nasal 02/26/2025 8:51 AM CDT Maritza Madera NP POINT OF CARE TEST ORDERABLES F inal Result Performing Organization Address City/State/[facility] Co de Phone Number [facility] [address] [place] [address] * POCT rapid strep A (02/26/2025 8:51 AM CDT) Rapid Strep A, POC Negative Negative Swab 02/26/2025 8:51 AM CDT Maritza Madera NP POINT OF CARE TEST ORDERABLES F inal Result from Last 3 Months Insurance [email or web address] OOS ANTH ACCESS Care Teams Electrical Electronics Engineers Relationship Specialty Start Date End Date Alee Dickerson MD PCP - General Family Medicine 04/20/22
--- OUTSIDE RECORDS SUMMARY | 2025-04-23 14:20 | XMS_ITS | Clinical Summary ---
Author Organization [facility] [employer] Address [address] [facility] [place] [address] Care Team Providers Care Core Composer Feeder Name Role Phone Mike Conner MD Primary Care Provider [phone] Source Comments [facility],non-owned Affiliates and Associated Physician Practices is amultiple site organization consisting of ambulatory clinics and hospital sitesin [place], [place], [place] and [place]. This disclosure is being madepursuant to the Care Everywhere program and may not contain all information available regarding this patient. Last updated 18.[facility] [employer] Allergies No known active allergies Medications * Be aware that medications may not be up to date on this document. Alwaysverify current medications with the patient. fluticasone propionate (FLONASE) 50 MCG/ACT nasal spray [place] 2 sprays into each nostril once daily [...] Tobacco: Former Cigarettes Smokeless Tobacco: Never Comments:stopped 2013 Comments No Sex and Gender Information Value [...] 2:05 PM CDT Height 167.6 cm (5' 6) 01/25/2021 2:05 PM CDT Body Mass Index [...] 3 - 19+ 3-dose series) 1998 HPV VACCINE (1 - 3-dose SCDM series) 2006 SCREENING FOR DIABETES 12/06/2020 DEPRESSION SCREENING 06/17/2024 COVID-19 VACCINE (3 - 2024-2 6 season) 2025 09/06/2020, 08/06/2020 INFLUENZA VACCINE (#1) 2025 , 04/06/2018 ZOSTER VACCINE (1 of 2) 2029 [...] patient's age to complete this topic Insurance [employer] ANTHEM Care Teams Core Composer Feeder Relationship Specialty Start Date End Date Mike Conner MD [address] [place], [place] [id number] PCP - General Family Medicine 04/26/18
--- OUTSIDE RECORDS SUMMARY | 2025-04-23 14:20 | XMS_ITS | Clinical Summary ---
Author Organization 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 Gender Identity Not on file Sexual Orientation [...] 4:42 AM CDT Height 167.6 cm (5' 6) 11/23/2015 4:42 AM CDT Body Mass Index 29.54 11/23/2015 4:42 AM CDT Plan of Treatment Health Maintenance Due Date Last Done Comments HEPATITIS B VACCINES (1 of 3 - 19+ 3-dose series) 07/18 HPV/Cotest (21-29) 2000 HPV VACCINES (1 - 3-dose SCDM series) 2006 CERVICAL CANCER SCREENING 2009 HPV/Cotest (30-65) 2009 PAP SMEAR 2009 BREAST CANCER SCREENING 2019 DTAP/TDAP/TD VACCINES (2 - Td or Tdap) 02/06/2024 COLORECTAL SCREENING 2024 03/27/2012 Colorectal Cancer Screening 2024 FIT-DNA Q 3 years 2024 FIT/FOBT Q 1 year 2024 Flex Sig/CT Colonography Q 5 years 2024 INFLUENZA VACCINE (#1) 2025 Medical Devices Implanted Type Area Budget Specialist Device Identifier Shelf Expiration Date Model / Serial / Lot Barrier Seprafilm 5x6in [id number] - [id number] Implanted:Qty : 1 on 11/23/2015 by Nahomi Canela MD at [facility] [employer] Barrier N/A: Uterus [employer] [id number] 10/14/2017 [id number] / / [id number] Insurance [facility] BLUE ACCESS/TRUE BLUE PPO Advance Directives For more information, please contact: [phone] * Full Code (Latest Code Status on [...]
== END 2025-04-23 14:18 | disposition home or self-care (01) ==
LOC: ANHFOHIMG 14:19
PROVIDERS: PCP Family Medicine; Visit Provider Obstetrics & Gynecology Gynecology
DX: Z12.31 Encounter for screening mammogram for malignant neoplasm of breast (principal)
CPT/HCPCS: 77063; 77067